=== PATIENT | male | born 1950 | race Caucasian/White ===

== ENCOUNTER 2016-08-30 15:54 | Emergency (ER) | payer OTHER ==
[2016-08-30 16:19] VITALS: BP 178/80; PULSE 78; RESP 18; TEMP 98; O2SAT 96
--- NOTE | 2016-08-30 16:48 | UCPHY ---
H & P Time Seen by Provider: 08/30/16 16:22 Patient Type: Established HPI/ROS: CHIEF COMPLAINT: Cough, headache, myalgias HISTORY OF PRESENT ILLNESS: 65-year-old male presents to urgent care by private vehicle complaining of cough and headache. The patient states yesterday he developed a dry cough and then woke up in the middle of the night continuing to cough despite taking NyQuil. He states he developed a gradual onset of a headache last night which has continued. No nausea or vomiting. No neck pain. No visual changes. He describes diffuse myalgias and pain in his upper and lower extremities. He denies chest pain or difficulty breathing. He denies abdominal pain. He received a flu shot in May 2016. Denies nasal congestion or rhinorrhea. REVIEW OF SYSTEMS: Constitutional: No fever, no chills. Eyes: No double or blurry vision. ENT: No sore throat. Respiratory: Dry cough, no shortness of breath Cardiac: No chest pain. Gastrointestinal: No abdominal pain, vomiting or diarrhea. Genitourinary: No dysuria. Musculoskeletal: No neck or back pain. Skin: No rashes. Neurological: Headache as above Past Medical/Surgical History: Negative Primary care provider is Dr. Ene Pardo Social History: and lives in [place] Smoking Status: Never smoked Physical Exam: General Appearance: Alert, moderate distress. Temp 36.6, heart rate 78, 178/80 , 96% on room air. Eyes: Pupils equal and round. Extraocular motions are all intact. ENT: Mouth: Mucous membranes moist. Respiratory: No wheezing, rhonchi, or rales, lungs are clear to auscultation. Cardiovascular: Regular rate and rhythm. Gastrointestinal: Abdomen is soft and nontender, no masses, no rebound or guarding, bowel sounds normal. Neurological: Alert and oriented x 3, cranial nerves II through XII grossly intact Skin: Warm and dry, no rashes. Musculoskeletal: Nontender to palpate along the cervical, thoracic or lumbar spine. Neck is supple. No lymphadenopathy. No nuchal rigidity. Extremities: Full range of motion and no peripheral edema. Psychiatric: Patient is oriented X 3, there is no agitation. Constitutional: Initial Vital Signs Temperature (C) 36.6 C 08/30/16 16:15 Heart Rate 78 08/30/16 16:15 Respiratory Rate 18 08/30/16 16:15 Blood Pressure 178/80 H 08/30/16 16:15 O2 Sat (%) 96 08/30/16 16:15 O2 Delivery Mode Room Air Allergies/Adverse Reactions: No Known Allergies Allergy (Verified 02/02/14 13:54) Home Medications: Medication Instructions Recorded Simvastatin [Zocor 40 mg (RX)] 40 mg PO DAILY18 05/18/12 Hydrocodone/APAP 5/325 [[place] 1 each PO Q4-6PRN PRN #15 tab 08/30/16 5/325 (*)] Oseltamivir Phosphate [Tamiflu] 75 mg PO BID #10 cap 08/30/16 Medical Decision Making ED Course/Re-evaluation: 65-year-old male presents to Urgent Care with headache, cough, myalgias. Influenza A was positive. I discussed the use of Tamiflu with the patient and he agrees with starting this medication tonight. He is also given a prescription for hydrocodone for severe pain. He will continue Motrin. He was instructed to return if he developed worsening headache, fever, or if he felt worse in any way. Differential Diagnosis: Including but not limited to influenza, pneumonia, viral upper respiratory infection, strep pharyngitis, electrolyte abnormality, intracranial bleed - Data Points Laboratory Results: 08/30/16 16:20 Influenza Typ A,B (DFA) POSITIVE FOR FLU A H (NEGATIVE) Medications Given: Discontinued Medications Ibuprofen (Motrin) 600 mg PO EDNOW ONE Stop: 08/30/16 17:36 Last Admin: 08/30/16 17:38 Dose: 600 mg Departure - Departure Disposition: Home, Routine, Self-Care Clinical Impression: Influenza A Condition: Good Instructions: Influenza (ED) Additional Instructions: Adult Pain & Fever Control: We recommend Acetaminophen (Tylenol) and Ibuprofen (Motrin,Advil) for pain and fever control. When fever is high or pain severe, both drugs can be used at the same time, but at different intervals. Please note the time differences. Your dose is: Acetaminophen 1000mg every 4 to 6 hours Ibuprofen 600mg every 8 hours with food Note: do not take Acetaminophen with Hydrocodone (Vicodin, Lortab) or Oycodone (Percocet). These medications also contain Acetaminophen. No more than 3000mg of Acetaminophen should be taken in 24 hours (for an adult). You have Influenza A virus. Since your symptoms started 24 hours ago, you may benefit from taking Tamiflu 75mg twice daily for 5 days. You should start this medication tonight. Return to Urgent Care if you develop fever, rash, increasing pain, or if you feel worse in any way. Referrals: Shani Pardo MD [Primary Care Provider] - As per Instructions Prescriptions: Hydrocodone/APAP 5/325 [[place] 5/325 (*)] 1 each PO Q4-6PRN PRN #15 tab PRN Reason: Pain, Severe Oseltamivir Phosphate [Tamiflu] 75 mg PO BID #10 cap - PQRS PQRS Measurement: 134: Depression screening and followup, PRIME MD-PHQ2 (12 years and older) Over the last 2 weeks, how often have you been bothered by any of the following problems? 1. Feeling down, depressed, or hopeless? 2. Little interest or pleasure in doing things? Patient answered no to both 1 and 2 130: Documentation of medications. Reviewed all patient medications, doses, route and frequency. 226: Do you smoke? No. 47: 65 and older: Advanced care planning. Patient has advanced directive. 51: 18 years old and older with diagnosis of COPD, spirometry performance. Patient has no history of COPD 52: 18 years old and older with COPD and symptoms of COPD or FEV1<60% predicted prescribed a B Agonist. Not applicable
[2016-08-30] MEDS ORDERED: IBUPROFEN 600 MG TAB PO ONE ×2 (17:32→17:35)
== END 2016-08-30 17:42 | disposition home or self-care (01) ==
LOC: CED 15:54
DX: J09.X2 Influenza due to identified novel influenza A virus with other respiratory manifestations (principal)
CPT/HCPCS: 87400-PO; 99214-PO; G0463-PO